=== PATIENT | female | born 1955 | race Caucasian/White ===

== ENCOUNTER 2017-01-14 14:15 | Inpatient (IN) | payer BC, OTHER ==
[2017-01-14 14:33] LABS: Glucose,Whole Blood 61 mg/dL (75-99)
[2017-01-14] MEDS ORDERED: SODIUM CHLORIDE 0.9% 1,000 ML IV STA (14:50)
--- NOTE | 2017-01-14 14:56 | ED ---
General Adult HPI - General Chief complaint: Seizure Stated complaint: Hypotension/Seizure Time Seen by Provider: 01/14/17 14:40 Source: patient, family, EMS, RN notes reviewed Mode of arrival: EMS Limitations: no limitations - History of Present Illness Initial comments: Patient is a pleasant 61-year-old female presenting to the emergency Department with complaints of possible seizure. Patient did see her doctor forming and had high blood pressure. Patient was placed on lisinopril/hydrochlorothiazide and did take 1. Following this patient felt lightheaded and warm and nauseous. Patient went back to the doctor's office and had 2 episodes of unresponsiveness. Each episode lasted 10-15 seconds. Patient's eyes rolled back of her head and there was some shaking. The physician human resources executive assistant there felt that Symptoms were consistent with seizure. No history of previous seizures. Patient is starting to feel somewhat better however does admit to feeling somewhat lightheaded. - Related Data Home Medications Medication Instructions Recorded Confirmed Multivitamins, Thera [Theragran] 1 tab PO DAILY 11/24/14 01/14/17 Ubidecarenone [Co Q-10] 100 mg PO DAILY 11/24/14 01/14/17 Fish Oil/Dha/Epa [Fish Oil 1,200 1 cap PO DAILY 01/14/17 01/14/17 mg Fish Oil] Lisinopril-Hctz 20-25 mg 1 tab PO DAILY 01/14/17 01/14/17 [Zestoretic 20-25] Naproxen [Naprosyn] 500 mg PO Q12HR PRN 01/14/17 01/14/17 Turmeric Root Extract [Turmeric] 500 mg PO DAILY 01/14/17 01/14/17 Allergies Allergy/AdvReac Type Severity Reaction Status Date / Time Penicillins Allergy Anaphylaxis Verified 01/14/17 15:04 Review of Systems ROS Statement: Those systems with pertinent positive or pertinent negative responses have been documented in the HPI. ROS Other: All systems not noted in ROS Statement are negative. Constitutional: Denies: fever Eyes: Denies: eye pain ENT: Denies: ear pain Respiratory: Denies: cough Cardiovascular: Denies: chest pain Endocrine: Denies: fatigue Gastrointestinal: Reports: nausea Genitourinary: Denies: dysuria Musculoskeletal: Denies: joint swelling Skin: Denies: rash Neurological: Denies: headache, weakness, confusion Past Medical History Past Medical History: Eye Disorder Additional Past Medical History / Comment(s): blind right eye, hx. elevated liver enzymes, hemorrhoids History of Any Multi-Drug Resistant Organisms: None Reported Past Surgical History: Section, Ear Surgery Additional Past Surgical History / Comment(s): right mastoid surg., eye muscle surg. Past Anesthesia/Blood Transfusion Reactions: No Reported Reaction Past Psychological History: No Psychological Hx Reported Smoking Status: Former smoker Past Alcohol Use History: Daily Past Drug Use History: None Reported General Exam Limitations: no limitations General appearance: alert, in no apparent distress Head exam: Present: atraumatic Eye exam: Present: other (Medications which patient states is chronic from surgery with multiple muscles being cut.) ENT exam: Present: normal oropharynx Neck exam: Present: normal inspection Respiratory exam: Present: normal lung sounds bilaterally Cardiovascular Exam: Present: regular rate, normal rhythm GI/Abdominal exam: Present: soft. Absent: tenderness Extremities exam: Present: normal inspection, full ROM. Absent: tenderness Neurological exam: Present: alert, oriented X3, CN II-XII intact. Absent: motor sensory deficit Expanded Speech: Present: fluid speech Cranial nerves: EOM's Intact: Normal, Facial Sensation: Normal Sensory exam: Upper Extremity Light Touch: Normal, Lower Extremity Light Touch: Normal Motor strength exam: RUE: 5, LUE: 5, RLE: 5, LLE: 5 Eye Response: (4) open spontaneously Motor Response: (6) obeys commands Verbal Response: (5) oriented Psychiatric exam: Present: normal affect, normal mood Skin exam: Present: normal color Course Vital Signs 01/14/17 01/14/17 01/14/17 14:17 14:26 14:45 Temperature 97.2 F L Pulse Rate 89 87 89 Respiratory 20 20 20 Rate Blood Pressure 95/56 96/56 104/59 O2 Sat by Pulse 97 98 98 Oximetry 01/14/17 01/14/17 15:45 16:41 Temperature Pulse Rate 80 78 Respiratory 18 18 Rate Blood Pressure 104/60 108/58 O2 Sat by Pulse 98 100 Oximetry - Reevaluation(s) Reevaluation #1: 01/14/17 15:08 Patient was earlier provided food for hypoglycemia EKG Findings - EKG Comments: EKG Findings:: Normal sinus rhythm at 82. MT 148. QRS 82. QT 406. QTc 474. Normal axis. Normal QRS. Normal ST-T. Medical Decision Making - Medical Decision Making Patient reevaluated. Patient and family updated. Case discussed in detail with Dr. Wall, who will admit for Dr. huang - Lab Data Result diagrams: 01/14/17 15:13 01/14/17 15:13 Lab Results 01/14/17 01/14/17 01/14/17 Range/Units 14:31 15:13 15:13 WBC (3.8-10.6) k/uL RBC (3.80-5.40) m/uL Hgb (11.4-16.0) gm/dL Hct (34.0-46.0) % MCV (80.0-100.0) fL MCH (25.0-35.0) pg MCHC (31.0-37.0) g/dL RDW (11.5-15.5) % Plt Count (150-450) k/uL PT 13.5 H (9.0-12.0) sec INR 1.4 (<1.1) APTT 24.8 (22.0-30.0) sec Sodium 141 (137-145) mmol/L Potassium 3.8 (3.5-5.1) mmol/L Chloride 106 (98-107) mmol/L Carbon Dioxide 18 L (22-30) mmol/L Anion Gap 17 mmol/L BUN 19 H (7-17) mg/dL Creatinine 1.00 (0.52-1.04) mg/dL Est GFR (MDRD) Af Amer >60 (>60 ml/min/1.73 sqM) Est GFR (MDRD) Non-Af 57 (>60 ml/min/1.73 sqM) Glucose 80 (74-99) mg/dL POC Glucose (mg/dL) 61 L (75-99) mg/dL POC Glu Tax Clerk ID [place], [place]er Calcium 8.8 (8.4-10.2) mg/dL Magnesium 1.4 L (1.6-2.3) mg/dL Total Bilirubin 0.6 (0.2-1.3) mg/dL AST 270 H (14-36) U/L ALT 142 H (9-52) U/L Alkaline Phosphatase 76 (38-126) U/L Total Protein 6.2 L (6.3-8.2) g/dL Albumin 3.9 (3.5-5.0) g/dL TSH 6.060 H (0.465-4.680) mIU/L Free T4 1.30 (0.78-2.19) ng/dL Free T3 pg/mL 4.6 (2.8-5.3) pg/ml 01/14/17 01/14/17 Range/Units 15:13 16:36 WBC 2.2 L (3.8-10.6) k/uL RBC 4.45 (3.80-5.40) m/uL Hgb 15.0 (11.4-16.0) gm/dL Hct 45.7 (34.0-46.0) % MCV 102.6 H (80.0-100.0) fL MCH 33.8 (25.0-35.0) pg MCHC 32.9 (31.0-37.0) g/dL RDW 13.2 (11.5-15.5) % Plt Count 184 (150-450) k/uL PT (9.0-12.0) sec INR (<1.1) APTT (22.0-30.0) sec Sodium (137-145) mmol/L Potassium (3.5-5.1) mmol/L Chloride (98-107) mmol/L Carbon Dioxide (22-30) mmol/L Anion Gap mmol/L BUN (7-17) mg/dL Creatinine (0.52-1.04) mg/dL Est GFR (MDRD) Af Amer (>60 ml/min/1.73 sqM) Est GFR (MDRD) Non-Af (>60 ml/min/1.73 sqM) Glucose (74-99) mg/dL POC Glucose (mg/dL) 91 (75-99) mg/dL POC Glu Tax Clerk ID McDaid, Margarita Calcium (8.4-10.2) mg/dL Magnesium (1.6-2.3) mg/dL Total Bilirubin (0.2-1.3) mg/dL AST (14-36) U/L ALT (9-52) U/L Alkaline Phosphatase (38-126) U/L Total Protein (6.3-8.2) g/dL Albumin (3.5-5.0) g/dL TSH (0.465-4.680) mIU/L Free T4 (0.78-2.19) ng/dL Free T3 pg/mL (2.8-5.3) pg/ml - Radiology Data Radiology results: image reviewed (Computed tomography scan of the brain reveals no acute abnormality.) Disposition Clinical Impression: Unresponsive episode, Hypotensive episode Disposition: ADMITTED IP TO THIS [facility] Condition: Serious Referrals: Brant Holloway DO [Primary Care Provider] - 1-2 days Decision Time: 16:49
--- NOTE | 2017-01-14 15:43 | CT ---
EXAMINATION TYPE: CT brain wo con DATE OF EXAM: 01/14/2017 COMPARISON: NONE INDICATION: SEIZURE TODAY. HYPERTENSION. DLP: 968.7 mGycm, Automated exposure control for dose reduction was used. CONTRAST: None CT of the brain is performed utilizing 3 mm thick sections through the posterior fossa and 3 mm thick sections through the remaining calvarium. Study is performed within 24 hours of arrival to the hosp ital. No abnormal hyperdensity is present to suggest an acute intracranial hemorrhage. No mass lesion is evident. No acute infarcts are evident. Ventricles and sulci are appropriate for the patient age. Paranasal sinuses and mastoid air cells within the [id number] are clear. IMPRESSIONS: 1. Normal CT Brain
[2017-01-14 15:56] LABS: INR 1.4 (<1.1); Partial Thromboplastin Time 24.8 sec (22.0-30.0); Prothrombin Time 13.5 sec (9.0-12.0)
[2017-01-14 16:01] LABS: ALT 142 U/L (9-52); AST 270 U/L (14-36); Alkaline Phosphatase 76 U/L (38-126); Anion Gap 17 mmol/L; Blood Urea Nitrogen 19 mg/dL (7-17); Calcium 8.8 mg/dL (8.4-10.2); Carbon Dioxide 18 mmol/L (22-30); Chloride 106 mmol/L (98-107); Glucose 80 mg/dL (74-99); Magnesium 1.4 mg/dL (1.6-2.3); Non-African American GFR(MDRD) 57 (>60 ml/min/1.73 sqM); Potassium 3.8 mmol/L (3.5-5.1); Sodium 141 mmol/L (137-145); Total Bilirubin 0.6 mg/dL (0.2-1.3); Total Protein 6.2 g/dL (6.3-8.2)
[2017-01-14 16:05] LABS: Basophils % (A) 0 %; CH 33.3; CHCM 32.6; Eosinophils % (A) 1 %; HCT 45.7 % (34.0-46.0); HDW 2.18; Immature Gran Flag Marked; Luc # (Auto) 0.02; Luc % (Auto) 1; Lymphocytes # (A) 0.4 k/uL (1.0-4.8); Lymphocytes % (A) 21 %; MCH 33.8 pg (25.0-35.0); MCHC 32.9 g/dL (31.0-37.0); MCV 102.6 fL (80.0-100.0); Macrocytosis Slight; Mean Platelet Volume 6.8; Monocytes # (A) 0.1 k/uL (0-1.0); Monocytes % (A) 3 %; Neutrophils # (A) 1.6 k/uL (1.3-7.7); Neutrophils % (A) 74 %; RBC 4.45 m/uL (3.80-5.40); RDW 13.2 % (11.5-15.5); WBC 2.2 k/uL (3.8-10.6); WBC (Perox) 2.38
[2017-01-14 16:38] LABS: Glucose,Whole Blood 91 mg/dL (75-99)
[2017-01-14 16:48] LABS: Manual Review Performed
[2017-01-14] MEDS ORDERED: MAGNESIUM SULFATE-D5W PMX 1 GM in DEXTROSE/WATER 1 100ML.BAG IVPB ONE (16:48)
[2017-01-14 16:49] LABS: Toxic Vacuolation Present
[2017-01-14] MEDS: SODIUM CHLORIDE 0.9% 1,000 ML IV SCH (17:14)
[2017-01-14 19:32] VITALS: RESP 16
[2017-01-14 20:06] VITALS: BMI 32.4
[2017-01-14 20:46] LABS: Glucose,Whole Blood 173 mg/dL (75-99)
[2017-01-14] MEDS: NAPROXEN 250 MG TAB PO SCH (21:17)
--- NOTE | 2017-01-14 22:42 | US ---
EXAMINATION TYPE: US CAROTID DUPLEX BILAT DATE OF EXAM: 01/14/2017 COMPARISON: NONE CLINICAL HISTORY: Stenosis. Syncope EXAM MEASUREMENTS: RIGHT: Peak Systolic Velocity (PSV) cm/sec ----- Right CCA: 74.4 ----- Right ICA: 64.3 ----- Right ECA: 91.0 ICA/CCA ratio: 0.9 RIGHT: End Diastole cm/sec ----- Right CCA: 29.0 ----- Right ICA: 23.2 ----- Right ECA: 19.4 LEFT: Peak Systolic Velocity (PSV) cm/sec ----- Left CCA: 78.2 ----- Left ICA: 80.8 ----- Left ECA: 69.1 ICA/CCA ratio: 1.0 LEFT: End Diastole cm/sec ----- Left CCA: 28.5 ----- Left ICA: 31.1 ----- Left ECA: 15.0 VERTEBRALS (direction of flow): Right Vertebral: Antegrade Left Vertebral: Antegrade IMPRESSION: . NO SIGNIFICANT STENOSIS.
[2017-01-15] MEDS: SODIUM CHLORIDE 0.9% 1,000 ML IV SCH ×3 (03:55→20:11)
[2017-01-15 05:40] LABS: Glucose,Whole Blood 99 mg/dL (75-99)
[2017-01-15 06:16] LABS: Basophils % (A) 0 %; CH 33.3; CHCM 33.1; Eosinophils # (A) 0.1 k/uL (0-0.7); Eosinophils % (A) 1 %; HCT 44.5 % (34.0-46.0); HDW 2.17; HGB 14.6 gm/dL (11.4-16.0); Luc # (Auto) 0.08; Luc % (Auto) 1; Lymphocytes # (A) 0.9 k/uL (1.0-4.8); Lymphocytes % (A) 14 %; MCH 33.3 pg (25.0-35.0); MCHC 32.9 g/dL (31.0-37.0); Macrocytosis Slight; Mean Platelet Volume 6.8; Monocytes # (A) 0.4 k/uL (0-1.0); Monocytes % (A) 6 %; Neutrophils # (A) 5.3 k/uL (1.3-7.7); Neutrophils % (A) 78 %; RDW 13.3 % (11.5-15.5); WBC 6.8 k/uL (3.8-10.6); WBC (Perox) 7.19
[2017-01-15 06:26] LABS: Anion Gap 10 mmol/L; Blood Urea Nitrogen 18 mg/dL (7-17); Calcium 8.7 mg/dL (8.4-10.2); Carbon Dioxide 20 mmol/L (22-30); Chloride 108 mmol/L (98-107); Cholesterol 194 mg/dL (<200); Glucose 106 mg/dL (74-99); HDL Cholesterol 59 mg/dL (40-60); Non-African American GFR(MDRD) >60 (>60 ml/min/1.73 sqM); Sodium 138 mmol/L (137-145); Triglycerides 227 mg/dL (<150)
[2017-01-15] MEDS: NAPROXEN 250 MG TAB PO SCH ×2 (09:19→20:11)
--- NOTE | 2017-01-15 11:03 | ECHOF ---
Referral Reason:Thrombus MEASUREMENTS -------- HEIGHT: 157.5 cm WEIGHT: 80.3 kg BP: 133/76 IVSd: 1.3 cm (0.6 - 1.1) LVIDd: 3.6 cm (3.9 - 5.3) LVPWd: 1.4 cm (0.6 - 1.1) IVSs: 1.8 cm LVIDs: 1.7 cm LVPWs: 2.5 cm Ao Diam: 2.5 cm (2.0 - 3.7) AV Cusp: 1.5 cm (1.5 - 2.6) LA Diam: 3.4 cm (2.7 - 3.8) MV EXCURSION: 8.330 mm (> 18.000) MV EF SLOPE: 35 mm/s (70 - 150) EPSS: 0.9 cm MV E Aníbal: 0.86 m/s MV DecT: 107 ms MV A Aníbal: 0.93 m/s MV E/A Ratio: 0.92 RAP: 5.00 mmHg RVSP: 15.84 mmHg FINDINGS -------- Sinus rhythm. This was a technically good study. There is moderate concentric left ventricular hypertrophy. Overall left ventricular systolic function is normal with, an EF between 55 - 60 %. The right ventricle is normal in size. The left atrium is normal in size. The right atrium is normal in size. The aortic valve is trileaflet, and appears structurally normal. No aortic stenosis or regurgitation. There is trace to mild mitral regurgitation. Trace tricuspid regurgitation present. The right ventricular systolic pressure, as measured by Doppler, is 15.84mmHg. Pulmonic valve appears structurally normal. The aortic root size is normal. The pericardium is normal. CONCLUSIONS -------- 1. Sinus rhythm. 2. Trace tricuspid regurgitation present. 3. The right ventricular systolic pressure, as measured by Doppler, is 15.84mmHg. 4. Pulmonic valve appears structurally normal. 5. The aortic root size is normal. 6. The pericardium is normal. 7. This was a technically good study. 8. There is moderate concentric left ventricular hypertrophy. 9. Overall left ventricular systolic function is normal with, an EF between 55 - 60 %. 10. The right ventricle is normal in size. 11. The left atrium is normal in size. 12. The right atrium is normal in size. 13. The aortic valve is trileaflet, and appears structurally normal. No aortic stenosis or regurgitation. 14. There is trace to mild mitral regurgitation. GAS STATION CASHIER: Shanae Yanez RDCS
[2017-01-15 11:25] LABS: Glucose,Whole Blood 93 mg/dL (75-99)
[2017-01-15] MEDS: amLODIPine 5 MG TAB PO SCH (15:40)
--- NOTE | 2017-01-15 16:42 | P.HPIM ---
History of Present Illness H&P Date: 01/15/17 Chief Complaint: Syncope 61-year-old female with history of recent diagnosis of hypertension states her her blood pressures at home have been systolic 150-170 in the recent 1 in to the patient's primary care doctor who has noted her blood pressure being greater than 200 systolic in his office. Patient was started on a lisinopril/ hydrochlorothiazide combination. Patient went home to the medication was immediately noted to be diaphoretic and was not able to be mobile patient went back to primary care physician's office where the blood pressure was deemed to be low sent in to the emergency room patient's blood pressure in the emergency room apparently was around 90 systolic initially. Today patient states to be doing well denies having headaches blurry vision nausea vomiting diarrhea. Patient has lost consciousness twice during this whole episode Denies having any family history of ALLERGIES to CATALINO inhibitor Today in no chest pain difficulty breathing abdominal pain and urinary urgency or frequency or constipation or diarrhea. Review of Systems All systems: negative (Noted in HPI) Past Medical History Past Medical History: Eye Disorder, Osteoarthritis (OA) Additional Past Medical History / Comment(s): blind right eye, hx. elevated liver enzymes, hemorrhoids History of Any Multi-Drug Resistant Organisms: None Reported Past Surgical History: Section, Ear Surgery Additional Past Surgical History / Comment(s): right mastoid surg., eye muscle surgery. enlarged lymph node on neck Past Anesthesia/Blood Transfusion Reactions: No Reported Reaction Past Psychological History: No Psychological Hx Reported Smoking Status: Former smoker Past Alcohol Use History: Daily Additional Past Alcohol Use History / Comment(s): 2 glasses of wine daily Past Drug Use History: None Reported - Past Family History Father Family Medical History: Cancer, Myocardial Infarction ([place]) Additional Family Medical History / Comment(s): bladder cancer Mother Family Medical History: Osteoarthritis (OA) Additional Family Medical History / Comment(s): arachnoid cyst Medications and Allergies Home Medications Medication Instructions Recorded Confirmed Type Multivitamins, Thera [Theragran] 1 tab PO DAILY 11/24/14 01/14/17 History Ubidecarenone [Co Q-10] 100 mg PO DAILY 11/24/14 01/14/17 History Fish Oil/Dha/Epa [Fish Oil 1,200 1 cap PO DAILY 01/14/17 01/14/17 History mg Fish Oil] Lisinopril-Hctz 20-25 mg 1 tab PO DAILY 01/14/17 01/14/17 History [Zestoretic 20-25] Naproxen [Naprosyn] 500 mg PO Q12HR PRN 01/14/17 01/14/17 History Turmeric Root Extract [Turmeric] 500 mg PO DAILY 01/14/17 01/14/17 History Allergies Allergy/AdvReac Type Severity Reaction Status Date / Time bee venom protein (honey bee) Allergy Swelling Verified 01/14/17 19:59 Penicillins Allergy Anaphylaxis Verified 01/14/17 15:04 Physical Exam Vitals: Vital Signs Temp Pulse Pulse Resp BP BP Pulse Ox 01/15/17 12:00 97.6 F 77 16 179/100 96 01/15/17 09:20 98.2 F 88 16 132/83 97 01/15/17 04:00 99 F 90 16 133/76 93 L 01/15/17 00:00 83 16 138/70 93 L 01/14/17 21:14 91 01/14/17 19:15 97.5 F L 91 16 114/72 94 L 01/14/17 18:50 98.0 F 99 20 126/82 99 01/14/17 17:35 85 18 116/62 97 01/14/17 16:41 78 18 108/58 100 Intake and Output 01/15/17 01/15/17 01/15/17 06:59 14:59 22:59 Intake Total 800 480 Balance 800 480 Intake: IV 800 Sodium Chloride 0.9% 1, 800 000 ml @ 100 mls/hr IV . Q10H [facility] Rx#:[id number] Oral 480 Other: # Voids 1 Weight 80.6 kg Physical exam Gen. appearance oriented 3 in no distress Neck is supple no JVD Lungs good air entry clear to auscultation no rhonchi or wheezing Heart S1-S2 heard regular rate and rhythm no murmurs appreciated Abdomen is soft nontender no organomegaly bowel sounds are intact Neurologically cranial nerves II-12 grossly intact no focal motor or sensory deficits noted Skin no abnormalities appreciated Results CBC & Chem 7: 01/15/17 05:23 01/15/17 05:23 Labs: Abnormal Lab Results - Last 24 Hours (Table) 01/14/17 01/14/17 01/14/17 Range/Units 15:13 15:13 20:44 WBC 2.2 L (3.8-10.6) k/uL MCV 102.6 H (80.0-100.0) fL Lymphocytes # 0.4 L (1.0-4.8) k/uL Chloride (98-107) mmol/L Carbon Dioxide (22-30) mmol/L BUN (7-17) mg/dL Glucose (74-99) mg/dL POC Glucose (mg/dL) 173 H (75-99) mg/dL Triglycerides (<150) mg/dL TSH 6.060 H (0.465-4.680) mIU/L 01/15/17 01/15/17 Range/Units 05:23 05:23 WBC (3.8-10.6) k/uL MCV 101.0 H (80.0-100.0) fL Lymphocytes # 0.9 L (1.0-4.8) k/uL Chloride 108 H (98-107) mmol/L Carbon Dioxide 20 L (22-30) mmol/L BUN 18 H (7-17) mg/dL Glucose 106 H (74-99) mg/dL POC Glucose (mg/dL) (75-99) mg/dL Triglycerides 227 H (<150) mg/dL TSH (0.465-4.680) mIU/L Thrombosis Risk Factor Assmnt - Choose All That Apply Any of the Below Risk Factors Present?: Yes Each Factor Represents 1 point: Age 41-60 years, Obesity (BMI >25) Other Risk Factors: No Thrombosis Risk Factor Assessment Total Risk Factor Score: 2 Thrombosis Risk Factor Assessment Level: Low Risk Assessment and Plan Plan: #1 syncope likely secondary to significant relative episodes of hypotension this is unusual as there is no other signs of patient having a abnormal reaction to lisinopril #2 currently accelerated hypertension without any symptoms #3 previous history of tobacco use Plan We'll start the patient on 5 mg of amlodipine at this time Patient's blood pressures are 170/90 target blood pressure be around 140-150 systolic Patient is to be some questions about seizure like activity which could be attributed to the above relative hypotension \ will have neurology evaluate the patient as well
[2017-01-16 06:26] LABS: Basophils % (A) 1 %; CH 33.5; CHCM 33.3; Eosinophils # (A) 0.2 k/uL (0-0.7); Eosinophils % (A) 2 %; HCT 42.1 % (34.0-46.0); HDW 2.21; HGB 13.9 gm/dL (11.4-16.0); Luc # (Auto) 0.21; Luc % (Auto) 3; Lymphocytes # (A) 2.2 k/uL (1.0-4.8); Lymphocytes % (A) 30 %; MCH 33.5 pg (25.0-35.0); MCHC 33.1 g/dL (31.0-37.0); MCV 101.1 fL (80.0-100.0); Macrocytosis Slight; Mean Platelet Volume 6.7; Monocytes # (A) 0.5 k/uL (0-1.0); Monocytes % (A) 7 %; Neutrophils # (A) 4.2 k/uL (1.3-7.7); Neutrophils % (A) 58 %; RBC 4.16 m/uL (3.80-5.40); RDW 13.4 % (11.5-15.5); WBC 7.2 k/uL (3.8-10.6); WBC (Perox) 7.58
[2017-01-16 06:51] LABS: Anion Gap 9 mmol/L; Blood Urea Nitrogen 12 mg/dL (7-17); Calcium 9.4 mg/dL (8.4-10.2); Carbon Dioxide 26 mmol/L (22-30); Chloride 107 mmol/L (98-107); Glucose 102 mg/dL (74-99); Non-African American GFR(MDRD) >60 (>60 ml/min/1.73 sqM); Potassium 4.9 mmol/L (3.5-5.1); Sodium 142 mmol/L (137-145)
--- NOTE | 2017-01-16 07:04 | CONS ---
DATE OF CONSULTATION: 01/15/2017 CHIEF COMPLAINT: Syncopal spells. HISTORY OF PRESENT ILLNESS: The patient is a pleasant 61-year-old, female who is being evaluated by the neurology service per the request of Dr. Wall for syncopal spells. The patient was recently diagnosed with hypertension and was started on lisinopril/hydrochlorothiazide by her primary care physician. Soon after taking the medication, she felt very dizzy and she went back to her primary care physician's office where she had 2 witnessed episodes of loss of consciousness. On one of the episodes, it was described that the patient's eyes rolled back and some jerking was seen. The patient does recall the events and recalls that she was feeling very dizzy and nauseous just before passing out. When she regained consciousness, she did not have any confusion or drowsiness and she knew exactly where she was at according to her. She was brought into [facility] Emergency Room where her blood pressure was found to be quite low at 95/56. She was started on IV fluids and admitted for further workup and management. Her lisinopril/hydrochlorothiazide was discontinued. A CT scan of the brain was done, which was normal and her carotid Doppler showed no hemodynamically significant stenosis. Her comprehensive metabolic profile showed elevated AST at 270 and ALT at 142. She does drink 2 glasses of wine almost on a daily basis. PAST MEDICAL HISTORY: Hypertension, history of ear surgery and . SOCIAL HISTORY: The patient is a former smoker. She does drink daily. She denies any drug use. FAMILY HISTORY: Noncontributory. HOME MEDICATIONS: Reviewed in the chart. ALLERGIES: PENICILLIN. REVIEW OF SYSTEMS: As mentioned above and otherwise negative. PHYSICAL EXAM: Vital signs show a temperature of 97.6, pulse 91, respirations 16, blood pressure 158/86. GENERAL APPEARANCE: The patient is a well-developed female who appears to be in no acute distress. HEENT: Normocephalic, atraumatic. ( ) is noticed in the right eye. The patient does have right eye blindness. No facial asymmetry is seen. Neck is supple with no masses felt. CARDIOVASCULAR: Regular rate and rhythm. ABDOMEN: Nontender, nondistended. Extremities showed no edema or clubbing. NEUROLOGICAL EXAM: The patient is alert, aware, and oriented x3. Speech and language are normal. Strength is full in all 4 extremities. Sensory exam was normal to light touch in all 4 extremities. Cranial nerve testing was normal except for right eye visual deficit and ( ) seen on the right eye. IMPRESSION: 1. Syncopal spells. 2. Hypotension. 3. Hepatic insufficiency. RECOMMENDATIONS: The patient's recurrent syncopal episodes are due to her hypotensive episodes. The patient had taken her first dose of lisinopril/hydrochlorothiazide, which caused her hypotensive episode. Her blood pressure is better at this time. She has been switched to Norvasc. An EEG has been ordered. As for her hepatic insufficiency, I do recommend further workup and management as her INR is also slightly elevated. The patient was counseled on alcohol cessation. Continue the rest of your current workup and management. I will continue to follow with you. Further recommendations to follow. Thank you for allowing me to participate in the care of your patient. If you have any questions, please feel free to contact me.
[2017-01-16] MEDS: NAPROXEN 250 MG TAB PO SCH (08:59)
[2017-01-16] MEDS: amLODIPine 5 MG TAB PO SCH (08:59)
[2017-01-16 09:05] VITALS: PULSE 81; TEMP 97.6
--- NOTE | 2017-01-16 13:45 | P.DS ---
Providers Date of admission: 01/14/17 16:49 Attending physician: Sue Wall Consults: 01/14/17 16:50 Consult Physician Urgent Consulting Provider: Josefa Be Consult Reason/Comments: Unresponsive episode Do you want consulting provider notified?: Yes Primary care physician: Brant Holloway [place] [employer] [facility] Course: 61-year-old female with history of recent diagnosis of hypertension states her her blood pressures at home have been systolic 150-170 in the recent 1 in to the patient's primary care doctor who has noted her blood pressure being greater than 200 systolic in his office. Patient was started on a lisinopril/ hydrochlorothiazide combination. Patient went home to the medication was immediately noted to be diaphoretic and was not able to be mobile patient went back to primary care physician's office where the blood pressure was deemed to be low sent in to the emergency room patient's blood pressure in the emergency room apparently was around 90 systolic initially. Today patient states to be doing well denies having headaches blurry vision nausea vomiting diarrhea. Patient has lost consciousness twice during this whole episode Denies having any family history of ALLERGIES to CATALINO inhibitor Today in no chest pain difficulty breathing abdominal pain and urinary urgency or frequency or constipation or diarrhea. Physical exam Gen. appearance oriented 3 in no distress Neck is supple no JVD Lungs good air entry clear to auscultation no rhonchi or wheezing Heart S1-S2 heard regular rate and rhythm no murmurs appreciated Abdomen is soft nontender no organomegaly bowel sounds are intact Neurologically cranial nerves II-12 grossly intact no focal motor or sensory deficits noted Skin no abnormalities appreciated Plan: #1 syncope this is likely vasovagal. There is some concern over having a reaction to lisinopril that would be unusual hence change in medication or to amlodipine 5 mg and will discharge the patient home to follow-up with Dr. Holloway. Did discuss the proper method of taking blood pressure recording it in order to follow-up with Dr. Holloway patient verbalized understanding #2 accelerated hypertension present on admission #3 previous history of tobacco use Patient Condition at Discharge: Serious Plan - Discharge Summary New Discharge Prescriptions: New amLODIPine [Norvasc] 5 mg PO DAILY #30 tab Continue Multivitamins, Thera [Multivitamin (formulary)] 1 tab PO DAILY Ubidecarenone [Co Q-10] 100 mg PO DAILY Naproxen [Naprosyn] 500 mg PO Q12HR PRN PRN Reason: Pain Turmeric Root Extract [Turmeric] 500 mg PO DAILY Fish Oil/Dha/Epa [Fish Oil 1,200 mg Fish Oil] 1 cap PO DAILY Discontinued Lisinopril-Hctz 20-25 mg [Zestoretic 20-25] 1 tab PO DAILY Discharge Medication List Multivitamins, Thera [Multivitamin (formulary)] 1 tab PO DAILY 11/24/14 [History ] Ubidecarenone [Co Q-10] 100 mg PO DAILY 11/24/14 [History] Fish Oil/Dha/Epa [Fish Oil 1,200 mg Fish Oil] 1 cap PO DAILY 01/14/17 [History] Naproxen [Naprosyn] 500 mg PO Q12HR PRN 01/14/17 [History] Turmeric Root Extract [Turmeric] 500 mg PO DAILY 01/14/17 [History] amLODIPine [Norvasc] 5 mg PO DAILY #30 tab 01/16/17 [Rx] Follow up Appointment(s)/Referral(s): Brant oHlloway DO [Primary Care Provider] - 01/18/17 10:00 am Patient Instructions/Handouts: Hypertension (DC) Discharge Disposition: HOME SELF-CARE
[2017-01-16 14:23] VITALS: BP 157/87
--- NOTE | 2017-01-16 18:36 | PN ---
DATE OF SERVICE: 01/16/2017 CHIEF COMPLAINT: Syncopal spells. HISTORY OF PRESENT ILLNESS: This is a pleasant 71-year-old female continuing to be evaluated by the neurology service for syncopal spells. She was recently diagnosed with hypertension and started on lisinopril and hydrochlorothiazide. Soon after taking her medication she became dizzy and had 2 episodes of syncope. There was no seizure activity seen. There was no postictal confusion. In the emergency room, her blood pressure was found to be 95/56. She was started on IV fluids and admitted. CT of the brain showed no acute intracranial abnormalities. Her carotid Doppler showed no hemodynamically significant stenosis. Her EEG was normal. Since admission, the medication has been stopped and she has no further episodes. At the time of my exam she is sitting up at her bedside comfortably in no acute distress. PAST MEDICAL HISTORY: Hypertension and . Home medications are reviewed in the chart. PHYSICAL EXAM: Vital signs show temperature 97.6, pulse 91, respirations 16, blood pressure was pulse 88/86. GENERAL APPEARANCE: Well-developed, female in no acute distress. HEENT: Normocephalic, atraumatic. 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 CARDIOVASCULAR: Rate and rhythm are regular. ABDOMEN: Nontender, nondistended. NEUROLOGICAL: She is alert, awake and oriented x3. Speech and language are normal. Strength is full in all 4 extremities. No tremors or seizure-like activities are seen. IMPRESSION: 1. Syncopal spell, resolved. 2. Hypotension. 3. Hepatic insufficiency. RECOMMENDATIONS: We do not feel that her symptoms are due to any neurological process. These are likely hypotensive episodes, which have resolved with this cessation of her blood pressure medications. She was started on a new blood pressure medication and she will follow up with her primary care physician. I performed a history and physical examination of this patient and discussed the same with the dictator. I agree with the dictator's note. Any additional findings/opinions, etc. will be noted.
--- NOTE | 2017-01-17 05:44 | EEG ---
DATE OF SERVICE: 01/16/2017 REASON FOR TESTING: Syncope. AGE: 61Y DESCRIPTION OF THE PROCEDURE: This EEG was performed using a 21-channel digital electroencephalograph, following the international 10 to 20 system. DESCRIPTION OF THE RECORDING: From the beginning of the tracing, and with the patient's eyes closed, the background rhythm was mostly consisting of 8 to 9 Hz alpha frequency in the posterior occipital region. No obvious asymmetry is seen. Photic stimulation was performed with a good driving response seen. No pathological waves were elicited. Hyperventilation was not performed. The patient remains awake throughout the tracing. No epileptiform discharges were seen. Her EKG lead showed a regular rate and rhythm. INTERPRETATION: This awake EEG can be considered within normal limits. There was no asymmetry seen. No epileptiform discharges were noticed. The absence of epileptiform discharges does not rule out the diagnosis of epilepsy, therefore, clinical correlation is recommended.
== END 2017-01-16 14:33 | disposition home or self-care (01) | DRG 312 ==
LOC: EC 14:15 → 6SEL 16:49
PROVIDERS: ADMIT Internal Medicine; ATTEND Internal Medicine
DX: I95.2 Hypotension due to drugs (principal); K72.90 Hepatic failure, unspecified without coma; I10 Essential (primary) hypertension; R55 Syncope and collapse; H54.41 Blindness, right eye, normal vision left eye; K64.9 Unspecified hemorrhoids; M19.90 Unspecified osteoarthritis, unspecified site; T46.4X5A Adverse effect of angiotensin-converting-enzyme inhibitors, initial encounter; Z87.891 Personal history of nicotine dependence; Z88.0 Allergy status to penicillin; Z82.49 Family history of ischemic heart disease and other diseases of the circulatory system; Y92.009 Unspecified place in unspecified non-institutional (private) residence as the place of occurrence of the external cause
CPT/HCPCS: 36415; 70450; 80048; 80053; 80061; 83735; 84439; 84443; 84481; 84484; 85025; 85610; 85730; 93005; 93306; 93880; 95816; 96361; 96365; 99285

== ENCOUNTER 2017-02-13 09:26 | Inpatient (IN) | payer OTHER ==
[2017-02-13] MEDS ORDERED: RACEPINEPHRINE 2.25% NEB 0.5 ML NEBU INHALATION STA (09:34)
[2017-02-13] MEDS ORDERED: SODIUM CHLORIDE 0.9% 1,000 ML IV STA (09:35)
[2017-02-13] MEDS ORDERED: ONDANSETRON 4 MG/2 ML VIAL IVP STA (09:35)
[2017-02-13] MEDS ORDERED: methylPREDNISolone SOD SUCCI 125 MG/2 ML VIAL IV STA (09:35)
[2017-02-13] MEDS ORDERED: FAMOTIDINE 20 MG/2 ML VIAL IV STA (09:35)
--- NOTE | 2017-02-13 09:53 | ED ---
Allergic Reaction HPI - General Chief complaint: Allergic Reaction Stated complaint: Allergic Reaction Time Seen by Provider: 02/13/17 09:26 Source: patient, EMS, RN notes reviewed, old records reviewed Mode of arrival: EMS Limitations: no limitations - History of Present Illness Initial Comments: This is a 61-year-old female with a history of hypertension who apparently recently had a reaction to lisinopril and was placed on hydrochlorothiazide for her blood pressure which she started developing ALLERGIC reaction. She started developing difficulty breathing EMS was called she was found to have a blood pressure 70/30 she was hypoxemic. She was given Benadryl IV. She was found be tachycardic with her heart rate near the 150s. After consultation with me via telephone patient was given epinephrine. Upon arrival she was awake but somewhat lethargic but easily arousable and conversant. She has some nausea she states she did not feel well. She states her breathing has improved. No chest pain no cough or phlegm production. MD Complaint: allergic reaction - Related Data Home Medications Medication Instructions Recorded Confirmed Multivitamins, Thera [Multivitamin 1 tab PO DAILY 11/24/14 02/13/17 (formulary)] Ubidecarenone [Co Q-10] 100 mg PO DAILY 11/24/14 02/13/17 Fish Oil/Dha/Epa [Fish Oil 1,200 1 cap PO DAILY 01/14/17 02/13/17 mg Fish Oil] Naproxen [Naprosyn] 500 mg PO Q12HR PRN 01/14/17 02/13/17 Turmeric Root Extract [Turmeric] 500 mg PO DAILY 01/14/17 02/13/17 Ergocalciferol [Vitamin D2] 50,000 unit PO Q14D 02/13/17 02/13/17 Hydrochlorothiazide [Hydrodiuril] 25 mg PO DIRECTED 02/13/17 02/13/17 amLODIPine [Norvasc] 10 mg PO DAILY 02/13/17 02/13/17 Allergies Allergy/AdvReac Type Severity Reaction Status Date / Time bee venom protein (honey bee) Allergy Swelling Verified 02/13/17 10:11 hydrochlorothiazide Allergy Anaphylaxis Verified 02/13/17 10:11 lisinopril Allergy Anaphylaxis Verified 02/13/17 10:11 Penicillins Allergy Anaphylaxis Verified 02/13/17 10:11 Review of Systems ROS Statement: Those systems with pertinent positive or pertinent negative responses have been documented in the HPI. ROS Other: All systems not noted in ROS Statement are negative. Past Medical History Past Medical History: Eye Disorder, Osteoarthritis (OA) Additional Past Medical History / Comment(s): blind right eye, hx. elevated liver enzymes, hemorrhoids History of Any Multi-Drug Resistant Organisms: None Reported Past Surgical History: Section, Ear Surgery Additional Past Surgical History / Comment(s): right mastoid surg., eye muscle surgery. enlarged lymph node on neck Past Anesthesia/Blood Transfusion Reactions: No Reported Reaction Past Psychological History: No Psychological Hx Reported Smoking Status: Former smoker Past Alcohol Use History: Daily Past Drug Use History: None Reported - Past Family History Father Family Medical History: Cancer, Myocardial Infarction ([place]) Additional Family Medical History / Comment(s): bladder cancer Mother Family Medical History: Osteoarthritis ([place]) Additional Family Medical History / Comment(s): arachnoid cyst General Exam - General Exam Comments Initial Comments: This is a well-developed well-nourished awake alert anxious appearing female Limitations: no limitations General appearance: alert, anxious, in distress Head exam: Present: atraumatic, normocephalic, normal inspection Eye exam: Present: normal appearance, PERRL, EOMI. Absent: scleral icterus, conjunctival injection, periorbital swelling ENT exam: Present: other (Lab was here pharyngeal hyperemia no edema seen) Neck exam: Present: normal inspection, full ROM, other (Some stridor is noted.) Respiratory exam: Present: decreased breath sounds Cardiovascular Exam: Present: normal rhythm, tachycardia, normal heart sounds. Absent: systolic murmur, diastolic murmur, rubs, gallop, clicks GI/Abdominal exam: Present: soft, normal bowel sounds. Absent: distended, tenderness, guarding, rebound, rigid Extremities exam: Present: normal inspection, full ROM, normal capillary refill. Absent: tenderness, pedal edema, joint swelling, calf tenderness Back exam: Present: normal inspection Neurological exam: Present: alert, oriented X3, CN II-XII intact Psychiatric exam: Present: normal affect, anxious Skin exam: Present: dry, intact, other (Extremities are cool to touch capillary refill is maintained at less than 2 seconds however pulses were equal bilaterally.). Absent: rash Course Vital Signs 0702/13/17 02/13/17 09:34 09:40 09:53 Temperature 97.3 F L Pulse Rate 119 H 111 H 116 H Respiratory 30 H Rate Blood Pressure 106/61 O2 Sat by Pulse 92 L Oximetry 02/13/17 02/13/17 02/13/17 10:00 11:00 11:45 Temperature Pulse Rate 112 H 107 H 108 H Respiratory 25 H 25 H 18 Rate Blood Pressure 114/66 118/79 125/84 O2 Sat by Pulse 94 L 99 98 Oximetry 02/13/17 02/13/17 02/13/17 12:23 12:29 13:54 Temperature Pulse Rate 112 H 104 H Respiratory 18 18 Rate Blood Pressure 110/77 113/65 O2 Sat by Pulse 93 L 93 L 96 Oximetry - Reevaluation(s) Reevaluation #1: 02/13/17 09:58 I did discuss the initial presentation with the patient's who is now present she took the medication at about 7 AM this morning and then by 8 AM she was not feeling very well. She was then taken to the doctor's office which was right down the street. She does have some evidence of cyanosis at this time. states that this is not her normal color. Lung sounds are clear at this time the stridorous sounds have improved. Pulse oximetry is currently 93% . This is on a mask. 02/13/17 10:03 Further information patient is a former smoker she did quit 30 years ago she smoked for about 5 years. Reevaluation #2: 02/13/17 13:57 I did reevaluate patient several occasions. She did receive improvement the initial treatment. Medical Decision Making - Lab Data Result diagrams: 02/13/17 09:55 02/13/17 09:55 Lab Results 02/13/17 02/13/17 02/13/17 Range/Units 09:55 09:55 09:55 WBC 2.2 L (3.8-10.6) k/uL RBC 5.57 H (3.80-5.40) m/uL Hgb 18.5 H D (11.4-16.0) gm/dL Hct 55.5 H (34.0-46.0) % MCV 99.6 (80.0-100.0) fL MCH 33.1 (25.0-35.0) pg MCHC 33.3 (31.0-37.0) g/dL RDW 12.8 (11.5-15.5) % Plt Count 195 (150-450) k/uL Neutrophils % 56 % Lymphocytes % 35 % Monocytes % 7 % Eosinophils % 0 % Basophils % 1 % Neutrophils # 1.2 L (1.3-7.7) k/uL Lymphocytes # 0.8 L (1.0-4.8) k/uL Monocytes # 0.1 (0-1.0) k/uL Eosinophils # 0.0 (0-0.7) k/uL Basophils # 0.0 (0-0.2) k/uL D-Dimer (<0.60) mg/L FEU Sodium 141 (137-145) mmol/L Potassium 3.7 (3.5-5.1) mmol/L Chloride 109 H (98-107) mmol/L Carbon Dioxide 18 L (22-30) mmol/L Anion Gap 14 mmol/L BUN 12 (7-17) mg/dL Creatinine 0.70 (0.52-1.04) mg/dL Est GFR (MDRD) Af Amer >60 (>60 ml/min/1.73 sqM) Est GFR (MDRD) Non-Af >60 (>60 ml/min/1.73 sqM) Glucose 124 H (74-99) mg/dL Calcium 8.4 (8.4-10.2) mg/dL Magnesium 1.7 (1.6-2.3) mg/dL Total Bilirubin 0.5 (0.2-1.3) mg/dL AST 47 H (14-36) U/L ALT 35 (9-52) U/L Alkaline Phosphatase 115 (38-126) U/L Total Creatine Kinase 59 (30-135) U/L CK-MB (CK-2) 1.0 (0.0-2.4) ng/mL CK-MB (CK-2) Rel Index 1.7 Troponin I 0.046 H* (0.000-0.034) ng/mL Total Protein 6.3 (6.3-8.2) g/dL Albumin 3.6 (3.5-5.0) g/dL TSH 3.540 (0.465-4.680) mIU/L 07/12/17 Range/Units 10:12 WBC (3.8-10.6) k/uL RBC (3.80-5.40) m/uL Hgb (11.4-16.0) gm/dL Hct (34.0-46.0) % MCV (80.0-100.0) fL MCH (25.0-35.0) pg MCHC (31.0-37.0) g/dL RDW (11.5-15.5) % Plt Count (150-450) k/uL Neutrophils % % Lymphocytes % % Monocytes % % Eosinophils % % Basophils % % Neutrophils # (1.3-7.7) k/uL Lymphocytes # (1.0-4.8) k/uL Monocytes # (0-1.0) k/uL Eosinophils # (0-0.7) k/uL Basophils # (0-0.2) k/uL D-Dimer >34.07 H (<0.60) mg/L FEU Sodium (137-145) mmol/L Potassium (3.5-5.1) mmol/L Chloride (98-107) mmol/L Carbon Dioxide (22-30) mmol/L Anion Gap mmol/L BUN (7-17) mg/dL Creatinine (0.52-1.04) mg/dL Est GFR (MDRD) Af Amer (>60 ml/min/1.73 sqM) Est GFR (MDRD) Non-Af (>60 ml/min/1.73 sqM) Glucose (74-99) mg/dL Calcium (8.4-10.2) mg/dL Magnesium (1.6-2.3) mg/dL Total Bilirubin (0.2-1.3) mg/dL AST (14-36) U/L ALT (9-52) U/L Alkaline Phosphatase (38-126) U/L Total Creatine Kinase (30-135) U/L CK-MB (CK-2) (0.0-2.4) ng/mL CK-MB (CK-2) Rel Index Troponin I (0.000-0.034) ng/mL Total Protein (6.3-8.2) g/dL Albumin (3.5-5.0) g/dL TSH (0.465-4.680) mIU/L - EKG Data -: EKG Interpreted by Mt EKG shows normal: sinus rhythm Rate: tachycardia (Sinus tachycardia with a rate of 121 NV interval 142 QRS 76 QT/QTC of 332/471 right reyez axis nonspecific T-wave configuration this is compared with an EKG submitted from 01/14/17) - Radiology Data Radiology results: report reviewed (I did review the imaging and reports no evidence of PE no definite acute findings increased markings in the lungs were noted.), image reviewed Critical Care Time Critical Care Time: Yes Critical Care Time: 39 minutes of critical care time which includes initial monitoring of the EMS run and discussed with paramedics history physical labs x-rays reevaluation is of the patient. Discussed with the patient's family and several occasions regarding findings discussed with the admitting physician and admission orders and documentation of the above. Review of old charting. Disposition Clinical Impression: Allergic reaction, Anaphylaxis, Elevated d-dimer, Elevated troponin Disposition: ADMITTED IP TO THIS [facility] Condition: Stable Referrals: Brant Holloway DO [Primary Care Provider] - 1-2 days
[2017-02-13] MEDS ORDERED: MAGNESIUM SULFATE-D5W PMX 1 GM in DEXTROSE/WATER 1 100ML.BAG IVPB ONE (09:58)
[2017-02-13 10:15] LABS: ALT 35 U/L (9-52); AST 47 U/L (14-36); Alkaline Phosphatase 115 U/L (38-126); Anion Gap 14 mmol/L; Blood Urea Nitrogen 12 mg/dL (7-17); Calcium 8.4 mg/dL (8.4-10.2); Carbon Dioxide 18 mmol/L (22-30); Chloride 109 mmol/L (98-107); Glucose 124 mg/dL (74-99); Magnesium 1.7 mg/dL (1.6-2.3); Non-African American GFR(MDRD) >60 (>60 ml/min/1.73 sqM); Potassium 3.7 mmol/L (3.5-5.1); Sodium 141 mmol/L (137-145); Total Bilirubin 0.5 mg/dL (0.2-1.3); Total Protein 6.3 g/dL (6.3-8.2)
[2017-02-13 10:21] LABS: Basophils % (A) 1 %; CH 32.6; CHCM 32.9; Eosinophils % (A) 0 %; HCT 55.5 % (34.0-46.0); Luc # (Auto) 0.03; Luc % (Auto) 1; Lymphocytes # (A) 0.8 k/uL (1.0-4.8); Lymphocytes % (A) 35 %; MCH 33.1 pg (25.0-35.0); MCHC 33.3 g/dL (31.0-37.0); MCV 99.6 fL (80.0-100.0); Mean Platelet Volume 6.9; Monocytes # (A) 0.1 k/uL (0-1.0); Monocytes % (A) 7 %; Neutrophils # (A) 1.2 k/uL (1.3-7.7); Neutrophils % (A) 56 %; RBC 5.57 m/uL (3.80-5.40); RDW 12.8 % (11.5-15.5); WBC 2.2 k/uL (3.8-10.6)
--- NOTE | 2017-02-13 10:21 | XR ---
EXAMINATION TYPE: XR chest 1V portable DATE OF EXAM: 02/13/2017 COMPARISON: NONE HISTORY: Shortness of breath TECHNIQUE: Single frontal view of the chest is obtained. FINDINGS: Diffuse interstitial pattern noted. No pleural effusion or pneumothorax. Heart size normal . No consolidative process. IMPRESSION: 1. Diffuse interstitial pattern could be seen with interstitial lung disease or pneumonitis. Venous c ongestion or chronic pulmonary fibrosis also the differential diagnosis. No prior exam is available to assess chronicity.
[2017-02-13 10:24] LABS: HGB 18.5 gm/dL (11.4-16.0)
[2017-02-13 10:37] LABS: Troponin I 0.046 ng/mL (0.000-0.034)
[2017-02-13] MEDS ORDERED: RX INFO: IV CONTRAST WAS GIVEN 1 EACH MISC MISCELLANE PRN (11:09)
--- NOTE | 2017-02-13 11:57 | CT ---
EXAMINATION TYPE: CT angio chest DATE OF EXAM: 02/13/2017 COMPARISON: Chest x-ray same date HISTORY: SOB, elevated d dimer CT DLP: 554 mGycm Automated exposure control for dose reduction was used. CONTRAST: CTA scan of the thorax is performed with IV Contrast, patient injected with 100 mL of Omnipaque 350, pulmonary embolism protocol. MIP images are created and reviewed. 3D reconstructed images are creat ed on an independent workstation and reviewed. FINDINGS: LUNGS: As noted on patient's chest x-ray there is prominent interstitium. Groundglass opacity is pres ent bilaterally. Bronchial wall thickening is noted. There are small bilateral pleural effusions. Bas ilar atelectatic changes are present. AORTA: No additional significant abnormality is seen. MEDIASTINUM: There is satisfactory enhancement of the pulmonary artery and its branches, there is no CT evidence for pulmonary embolism. There are no greater than 1 cm hilar or mediastinal lymph nodes. No pericardial effusion is seen. OTHER: There are coronary artery calcifications. IMPRESSION: BILATERAL PLEURAL EFFUSIONS AND ASSOCIATED ATELECTASIS. CORONARY ARTERY DISEASE. CONSIDER CONGESTIVE HEART FAILURE, HYPERSENSITIVITY PNEUMONITIS, PULMONARY EDEMA. NO EVIDENT PULMONARY EMBOLISM.
[2017-02-13] MEDS ORDERED: NITROGLYCERIN SL TABS 0.4 MG TAB SUBLINGUAL PRN (13:59)
[2017-02-13] MEDS ORDERED: HEPARIN SODIUM,PORCINE 5,000 UNIT/ML 1 ML VIAL IV ONE (13:59)
[2017-02-13] MEDS ORDERED: HEPARIN SODIUM,PORCINE/D5W PMX 25,000 UNIT in DEXTROSE/WATER 1 500ML.BAG IV SCH (14:00)
[2017-02-13 15:56] LABS: Creatine Kinase MB 1.3 ng/mL (0.0-2.4)
[2017-02-13] MEDS ORDERED: IPRATROPIUM-ALBUTEROL 3 ML NEB INHALATION SCH (16:00)
[2017-02-13 16:01] LABS: Troponin I 0.102 ng/mL (0.000-0.034)
--- NOTE | 2017-02-13 16:17 | P.HPIM ---
History of Present Illness H&P Date: 02/13/17 Chief Complaint: Chest pain This is a 61-year-old female with history of hypertension comes in to the hospital after having an acute reaction to a new medication that was started within the last 24 hours. Patient was admitted to a service a month ago for similar episode where patient had a syncope and some concern for an ALLERGIC reaction. Patient at that time was on hydrochlorothiazide/lisinopril. The reaction was attribute it to lisinopril and hence was titrated off it and was started on amlodipine 5 mg Patient's primary care doctor Dr. Holloway has increased amlodipine to 10 mg however due to peripheral vascular edema a dose of hydrochlorothiazide was attempted with the patient patient took her first dose was noted to have significant amount of dyspnea and swelling in her tongue eyes. Patient did not have any episodes of chest pain or graft patient also noted to have significant episodes of tachyphylaxis with sinus tachycardia that was noted on the monitor Patient was seen in the emergency room was noted to have sinus tachycardia. Patient was also noted to have a d-dimer elevation is CT angiogram was done did not reveal a pulmonary embolism however patient was noted to have coronary calcifications Patient at the time of my evaluation states to be feeling better denies having headaches blurry vision chest pain difficulty breathing nausea vomiting diarrhea Patient ever denies having any ALLERGIES to sulfa exposure Review of Systems All systems: negative (Noted in HPI) Past Medical History Past Medical History: Eye Disorder, Hypertension, Osteoarthritis (OA) Additional Past Medical History / Comment(s): PT recently admitted to [facility] on 07/21 with allergic reaction to zestoretic. 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 History of Any Multi-Drug Resistant Organisms: None Reported Past Surgical History: Section, Tubal Ligation Additional Past Surgical History / Comment(s): right mastoid surg., eye muscle surgery, colonoscopy with benign polypectomy, D&C. Past Anesthesia/Blood Transfusion Reactions: Postoperative Nausea & Vomiting ( PONV) Smoking Status: Former smoker - Past Family History Father Family Medical History: Cancer, Myocardial Infarction ([place]) Additional Family Medical History / Comment(s): Father of bladder cancer. He had a [place] in his 70's. Mother Family Medical History: Osteoarthritis (OA) Additional Family Medical History / Comment(s): arachnoid cyst Medications and Allergies Home Medications Medication Instructions Recorded Confirmed Type Multivitamins, Thera [Multivitamin 1 tab PO DAILY 11/24/14 02/13/17 History (formulary)] Ubidecarenone [Co Q-10] 100 mg PO DAILY 11/24/14 02/13/17 History Fish Oil/Dha/Epa [Fish Oil 1,200 1 cap PO DAILY 01/14/17 02/13/17 History mg Fish Oil] Naproxen [Naprosyn] 500 mg PO Q12HR PRN 01/14/17 02/13/17 History Turmeric Root Extract [Turmeric] 500 mg PO DAILY 01/14/17 02/13/17 History Ergocalciferol [Vitamin D2] 50,000 unit PO Q14D 02/13/17 02/13/17 History Hydrochlorothiazide [Hydrodiuril] 25 mg PO DIRECTED 02/13/17 02/13/17 History amLODIPine [Norvasc] 10 mg PO DAILY 02/13/17 02/13/17 History Allergies Allergy/AdvReac Type Severity Reaction Status Date / Time bee venom protein (honey bee) Allergy Swelling Verified 02/13/17 10:11 hydrochlorothiazide Allergy Anaphylaxis Verified 02/13/17 10:11 lisinopril Allergy Anaphylaxis Verified 02/13/17 10:11 Penicillins Allergy Anaphylaxis Verified 02/13/17 10:11 Physical Exam Vitals: Vital Signs Temp Pulse Resp BP Pulse Ox 02/13/17 14:48 99.2 F 105 H 18 116/73 96 02/13/17 13:54 104 H 18 113/65 96 02/13/17 12:29 112 H 18 110/77 93 L 02/13/17 12:23 93 L 02/13/17 11:45 108 H 18 125/84 98 02/13/17 11:00 107 H 25 H 118/79 99 02/13/17 10:00 112 H 25 H 114/66 94 L 02/13/17 09:53 116 H 02/13/17 09:40 111 H 02/13/17 09:34 97.3 F L 119 H 30 H 106/61 92 L Intake and Output 02/13/17 02/13/17 02/13/17 06:59 14:59 22:59 Other: # Voids 0 Weight 77.111 kg Patient Weight 02/14/17 06:59 Weight 77.111 kg Physical exam Gen. appearance oriented 3 in no distress Neck is supple no JVD Periorbital swelling is still noted No swelling of the tongue good air movement of the neck Lungs good air entry clear to auscultation no rhonchi or wheezing Heart S1-S2 heard regular rate and rhythm no murmurs appreciated Abdomen is soft nontender no organomegaly bowel sounds are intact Neurologically cranial nerves II-12 grossly intact no focal motor or sensory deficits noted Skin no abnormalities appreciated Results CBC & Chem 7: 02/13/17 09:55 02/13/17 09:55 Labs: Abnormal Lab Results - Last 24 Hours (Table) 02/13/17 02/13/17 02/13/17 Range/Units 09:55 09:55 09:55 WBC 2.2 L (3.8-10.6) k/uL RBC 5.57 H (3.80-5.40) m/uL Hgb 18.5 H D (11.4-16.0) gm/dL Hct 55.5 H (34.0-46.0) % Neutrophils # 1.2 L (1.3-7.7) k/uL Lymphocytes # 0.8 L (1.0-4.8) k/uL D-Dimer (<0.60) mg/L FEU Chloride 109 H (98-107) mmol/L Carbon Dioxide 18 L (22-30) mmol/L Glucose 124 H (74-99) mg/dL AST 47 H (14-36) U/L Troponin I 0.046 H* (0.000-0.034) ng/mL 02/13/17 02/13/17 Range/Units 10:12 14:35 WBC (3.8-10.6) k/uL RBC (3.80-5.40) m/uL Hgb (11.4-16.0) gm/dL Hct (34.0-46.0) % Neutrophils # (1.3-7.7) k/uL Lymphocytes # (1.0-4.8) k/uL D-Dimer >34.07 H (<0.60) mg/L FEU Chloride (98-107) mmol/L Carbon Dioxide (22-30) mmol/L Glucose (74-99) mg/dL AST (14-36) U/L Troponin I 0.102 H* (0.000-0.034) ng/mL Thrombosis Risk Factor Assmnt - Choose All That Apply Any of the Below Risk Factors Present?: Yes Each Factor Represents 1 point: Age 41-60 years, Obesity (BMI >25) Other Risk Factors: No Other congenital or acquired thrombophilia - If yes, enter type in comment: No Thrombosis Risk Factor Assessment Total Risk Factor Score: 2 Thrombosis Risk Factor Assessment Level: Low Risk Assessment and Plan Plan: #1 acute anaphylactic reaction likely due to hydrochlorothiazide #2 essential hypertension #3 dyslipidemia #4 indeterminant troponin leak Plan Serial enzymes will be obtained if patient's troponins trended down patient does need a outpatient stress test as patient was noted to have significant calcium deposits in her coronary system however patient is symptom-free and this can be done on an outpatient basis Patient will be monitored in the hospital Complement level will be obtained We'll restart amlodipine 10 mg Continue IV fluids for another 24 hours An H1 and H2 ch[place] will be initiated patient be continued on Solu-Medrol 30 IV twice a day DVT prophylaxis
[2017-02-13] MEDS ORDERED: methylPREDNISolone SOD SUCCI 125 MG/2 ML VIAL IV SCH (18:00)
[2017-02-13] MEDS ORDERED: diphenhydrAMINE 50 MG/ML 1 ML VIAL IVP SCH (18:00)
[2017-02-13] MEDS: diphenhydrAMINE 50 MG/ML 1 ML VIAL IVP SCH ×2 (18:07→20:57)
[2017-02-13] MEDS ORDERED: IPRATROPIUM-ALBUTEROL 3 ML NEB INHALATION PRN (18:59)
[2017-02-13] MEDS: IPRATROPIUM-ALBUTEROL 3 ML NEB INHALATION SCH (20:17)
[2017-02-13] MEDS: FAMOTIDINE 20 MG/2 ML VIAL IV SCH (20:55)
[2017-02-13] MEDS: NAPROXEN 250 MG TAB PO PRN (20:58)
[2017-02-13] MEDS ORDERED: FAMOTIDINE 20 MG/2 ML VIAL IV SCH (21:00)
[2017-02-13] MEDS: methylPREDNISolone SOD SUCCI 40 MG/ML 1 ML VIAL IV SCH (21:04)
[2017-02-13] MEDS: SODIUM CHLORIDE 0.9% 1,000 ML IV SCH (21:18)
[2017-02-13 23:06] LABS: Creatine Kinase MB 0.9 ng/mL (0.0-2.4)
[2017-02-13 23:10] LABS: Troponin I 0.038 ng/mL (0.000-0.034)
[2017-02-14] MEDS: SODIUM CHLORIDE 0.9% 1,000 ML IV SCH (04:06)
[2017-02-14] MEDS: diphenhydrAMINE 50 MG/ML 1 ML VIAL IVP SCH ×3 (05:39→20:57)
[2017-02-14 06:48] LABS: Cholesterol 191 mg/dL (<200); HDL Cholesterol 80 mg/dL (40-60)
[2017-02-14] MEDS: IPRATROPIUM-ALBUTEROL 3 ML NEB INHALATION SCH ×4 (08:20→19:56)
[2017-02-14] MEDS ORDERED: amLODIPine 10 MG TAB PO SCH (09:00)
[2017-02-14] MEDS: methylPREDNISolone SOD SUCCI 40 MG/ML 1 ML VIAL IV SCH (10:37)
[2017-02-14] MEDS: FAMOTIDINE 20 MG/2 ML VIAL IV SCH ×2 (10:37→20:56)
[2017-02-14] MEDS: amLODIPine 10 MG TAB PO SCH (10:58)
[2017-02-14] MEDS: ASPIRIN 325 MG TAB PO SCH (10:58)
[2017-02-14] MEDS ORDERED: FUROSEMIDE 10 MG/ML 2 ML VIAL IV ONE (13:05)
--- NOTE | 2017-02-14 14:52 | CDI ---
In responding to this query, please exercise your independent professional judgment. The [facility] Coding Staff and Clinical Documentation Specialists appreciate your assistance in clarifying documentation, maintaining compliance with coding guidelines, accurately documenting patients condition and capturing severity of illness. The fact that a question is asked does not imply that any particular answer is desired or expected. Communication forms are a method of clarifying documentation and are not made part of the Legal Health Record. Thank you in advance for your clarification. Last Revision, October 2015 Bj Russell [address] [facility] [place] [address] Documentation Clarification Form Date: 02/14/2017 2:30:00 PM From: Arleen Pena RN CCDS Admit Date: 02/13/2017 1:59:00 PM Patient Name: Kassandra Patel Visit Number: [id number] Discharge Date: Dr. Jona Reis The patient presented with the following respiratory symptoms: difficulty breathing ER notes: Blood pressure per EMS 70/30 she was hypoxemic. History/Risk Factors: Hypertension Tobacco use: Former smoker Clinical Indicators: She started to develop difficulty breathing after taking hydrochlorothiazide and EMS was called. she was found to be tachycardic with heart rate 150's treated with Benadryl IV and epinephrine. ED She was short of breath, accessory muscle use, pursed lip breathing Vital signs/Pulse oximetry: 106/61 119 30 97.3 92 % 15 % Non-Rebreather Lung/Breathing assessment: Decreased breath sounds, she does have some evidence of cyanosis. (per ER evaluation) Chest x-ray: Diffuse interstitial pattern with interstitial lung disease or pneumonitis. Venous congestion or chronic pulmonary fibrosis also the differential diagnosis. Treatment: Breathing Tx: Albuterol/Ipratropium Duonebs per orders Monitor O2 Sat's and titrate Benadryl IV Q 8 hrs Solu-Medrol IV In your professional opinion, can you please clarify if these findings signify one of the following conditions? Acuity: o Acute o Chronic o Acute on Chronic Respiratory Status: o Respiratory failure o Respiratory failure with hypercapnia o Respiratory failure with hypoxia o Acute Respiratory Distress o Other Diagnosis, please specify o Unable to determine Please document in your progress notes and discharge summary in order to capture severity of illness and risk of mortality. Include clinical findings that support your diagnosis. FYI: Press F11 to launch patient chart. Place X here if this finding has no clinical significance, is not applicable or if you are not able to provide any additional documentation. MTDD
--- NOTE | 2017-02-14 16:02 | P.PN ---
Subjective This is a 61-year-old female with history of hypertension comes in to the hospital after having an acute reaction to a new medication that was started within the last 24 hours. Patient was admitted to a service a month ago for similar episode where patient had a syncope and some concern for an ALLERGIC reaction. Patient at that time was on hydrochlorothiazide/lisinopril. The reaction was attribute it to lisinopril and hence was titrated off it and was started on amlodipine 5 mg Patient's primary care doctor Dr. Holloway has increased amlodipine to 10 mg however due to peripheral vascular edema a dose of hydrochlorothiazide was attempted with the patient patient took her first dose was noted to have significant amount of dyspnea and swelling in her tongue eyes. Patient did not have any episodes of chest pain or graft patient also noted to have significant episodes of tachyphylaxis with sinus tachycardia that was noted on the monitor Patient was seen in the emergency room was noted to have sinus tachycardia. Patient was also noted to have a d-dimer elevation is CT angiogram was done did not reveal a pulmonary embolism however patient was noted to have coronary calcifications Patient at the time of my evaluation states to be feeling better denies having headaches blurry vision chest pain difficulty breathing nausea vomiting diarrhea Patient ever denies having any ALLERGIES to sulfa exposure 02/14/2070 Patient states to be feeling significantly better however still not back to her normal self Denies having chest pain difficulty breathing nausea vomiting or diarrhea Objective - Vital Signs Vital signs: Vital Signs Temp 98 F 02/14/17 11:24 Pulse 90 02/14/17 15:25 Resp 20 02/14/17 11:24 BP 128/76 02/14/17 11:24 Pulse Ox 94 L 02/14/17 11:24 Intake & Output 02/13/17 02/14/17 02/14/17 18:59 06:59 18:59 Intake Total 1759 1394 Balance 1759 1394 Weight 77.111 kg 79.5 kg Intake: Intake, IV Titration 1759 1274 Amount Heparin Sodium,Porcine/ 259 74 D5w Pmx 25,000 unit In Dextrose/Water 1 500ml. bag @ 12 UNITS/KG/HR 18.5 mls/hr IV .Q24H [facility] Rx#: [id number] Sodium Chloride 0.9% 1, 1500 1200 000 ml @ 100 mls/hr IV . Q10H [facility] Rx#:[id number] Oral 120 Other: Voiding Method Toilet # Voids 0 1 - Exam Physical exam Gen. appearance oriented 3 in no distress improved Neck is supple no JVD Lungs crackles at the bases no wheezing Heart S1-S2 heard regular rate and rhythm no murmurs appreciated Abdomen is soft nontender no organomegaly bowel sounds are intact Neurologically cranial nerves II-12 grossly intact no focal motor or sensory deficits noted Skin no abnormalities appreciated - Labs CBC & Chem 7: 02/13/17 09:55 02/13/17 09:55 Labs: Abnormal Lab Results - Last 24 Hours (Table) 02/13/17 02/13/17 02/13/17 Range/Units 14:35 22:05 22:05 APTT 64.5 H (22.0-30.0) sec Troponin I 0.102 H* 0.038 H* (0.000-0.034) ng/mL HDL Cholesterol (40-60) mg/dL 02/14/17 02/14/17 Range/Units 05:50 05:50 APTT 55.9 H (22.0-30.0) sec Troponin I (0.000-0.034) ng/mL HDL Cholesterol 80 H (40-60) mg/dL Assessment and Plan Plan: #1 acute anaphylactic reaction likely due to hydrochlorothiazide #2 essential hypertension #3 dyslipidemia #4 indeterminant troponin leak Plan She will need an outpatient stress test was noted to have calcified coronaries this was discussed with the patient Patient wants to follow with Dr.VC Escamilla Complement level will be obtained amlodipine 10 mg discontinue IV fluids discontinue Solu-Medrol
[2017-02-14] MEDS: NAPROXEN 250 MG TAB PO PRN (21:12)
[2017-02-15] MEDS: SODIUM CHLORIDE 0.9% 1,000 ML IV SCH (00:48)
[2017-02-15 01:25] VITALS: TEMP 97.5
[2017-02-15] MEDS: diphenhydrAMINE 50 MG/ML 1 ML VIAL IVP SCH (05:15)
[2017-02-15 06:08] LABS: Complement Total (CH50) 30 U/mL (42 - 95)
[2017-02-15] MEDS: FAMOTIDINE 20 MG/2 ML VIAL IV SCH (07:46)
[2017-02-15] MEDS: amLODIPine 10 MG TAB PO SCH (07:46)
[2017-02-15] MEDS: ASPIRIN 325 MG TAB PO SCH (07:46)
[2017-02-15] MEDS: NAPROXEN 250 MG TAB PO PRN (08:11)
[2017-02-15] MEDS: IPRATROPIUM-ALBUTEROL 3 ML NEB INHALATION SCH ×3 (08:15→15:51)
[2017-02-15 08:18] VITALS: RESP 17
[2017-02-15 13:18] VITALS: BP 156/79; PULSE 106
[2017-02-15 15:36] LABS: Basophils # (A) 0.1 k/uL (0-0.2); Basophils % (A) 1 %; CH 32.4; CHCM 34.2; Eosinophils # (A) 0.1 k/uL (0-0.7); Eosinophils % (A) 1 %; HCT 42.6 % (34.0-46.0); HDW 2.51; Luc # (Auto) 0.34; Luc % (Auto) 2; Lymphocytes % (A) 23 %; MCH 32.8 pg (25.0-35.0); MCHC 34.6 g/dL (31.0-37.0); Mean Platelet Volume 7.3; Monocytes % (A) 5 %; Neutrophils # (A) 12.4 k/uL (1.3-7.7); Neutrophils % (A) 69 %; RBC 4.48 m/uL (3.80-5.40); RDW 13.2 % (11.5-15.5); WBC 17.9 k/uL (3.8-10.6); WBC (Perox) 17.51
[2017-02-15 15:40] LABS: HGB 14.7 gm/dL (11.4-16.0)
[2017-02-15 15:45] LABS: Anion Gap 14 mmol/L; Blood Urea Nitrogen 18 mg/dL (7-17); Calcium 9.6 mg/dL (8.4-10.2); Carbon Dioxide 25 mmol/L (22-30); Chloride 105 mmol/L (98-107); Glucose 111 mg/dL (74-99); Non-African American GFR(MDRD) >60 (>60 ml/min/1.73 sqM); Potassium 3.8 mmol/L (3.5-5.1); Sodium 144 mmol/L (137-145)
[2017-02-15] MEDS ORDERED: INSULIN LISPRO (humaLOG) 300 UNIT/3 ML VIAL SQ SCH (17:30)
--- NOTE | 2017-02-16 09:50 | DS ---
Consultation: None. DISCHARGE DIAGNOSES: 1. Acute anaphylactic reaction secondary to hydrochlorothiazide. 2. Essential hypertension. 3. History of allergic reaction to Lisinopril. 4. Hyperlipidemia. 5. Intermediate troponin leak with no complaints of chest pain. HOSPITAL COURSE: Ms. Patel is a 61 year old female with known history of hypertension, came to the hospital with acute reaction to new medication that was started within the last 24 hours up to admission. The patient was admitted to hospital with similar episode once she had an allergic reaction to Lisinopril at that time. Currently blood pressure medications she is on Amlodipine 10 mg daily. Blood pressure is fairly controlled. Otherwise, the patient was advised to follow with primary care physician to titrate the blood pressure medications and currently the patient denied any complaints of chest pain or short of breath. The patient was found to have troponin leak on admission as well as elevated D. dimer. The patient had a CT angiogram was done did not reveal any pulmonary embolism, however, the patient was noted to have coronary calcifications. The patient was advised to follow up with cardiology clinic as advised previously for a stress test. The patient was advised to follow with Dr. Escamilla as an outpatient. Otherwise, hydrochlorothiazide has been discontinued. The patient initially had neutropenia as well as hemoglobin of 18.5 which has been normalized today. Hemoglobin 14.7 today and WBC 7.9 likely due to steroids. The patient will be continued on Benadryl prn as an outpatient and recommended to follow up with primary care physician in one to two days and repeat blood pressure checkup at this time and titrate the medications as needed. Otherwise, the patient is stable to be discharged home. Discharge physical examination: 61-year old female lying in the bed comfortably, awake, alert and oriented times three. Appears to be in no apparent distress. Vital signs: Blood pressure 156/79. Pulse 105. Respirations 17. Temperature afebrile. Pulse ox 93% on room air. Laboratory data reviewed. Discharge physical examination done. DISCHARGE MEDICATIONS: 1. Multivitamins one tablet po daily. 2. Co-Enzyme Q 100 mg po daily. 3. Fish oil one capsule po daily. 4. Naprosyn 500 mg po q12 hourly prn for pain. 5. Tumeric root extract 500 mg po daily. 6. Vitamin D2 50,000 units po q14 days. 7. Amlodipine 10 mg po daily. 8. Benadryl 25 mg po t.i.d. prn for allergic reaction. Otherwise, the patient is stable to be discharged home. Follow with Dr. Holloway in one or two days. Home with self care. Low salt diet. Activity as tolerated. MTDD
== END 2017-02-15 17:35 | disposition home or self-care (01) | DRG 915 ==
LOC: EC 09:26 → 6SEL 13:59
PROVIDERS: ADMIT Internal Medicine; ATTEND Internal Medicine
DX: T78.2XXA Anaphylactic shock, unspecified, initial encounter (principal); J96.01 Acute respiratory failure with hypoxia; D70.9 Neutropenia, unspecified; I10 Essential (primary) hypertension; T50.2X5A Adverse effect of carbonic-anhydrase inhibitors, benzothiadiazides and other diuretics, initial encounter; E78.5 Hyperlipidemia, unspecified; M19.91 Primary osteoarthritis, unspecified site; H54.41 Blindness, right eye, normal vision left eye; Z79.899 Other long term (current) drug therapy; Z88.0 Allergy status to penicillin; Z87.891 Personal history of nicotine dependence; Z88.8 Allergy status to other drugs, medicaments and biological substances; Z91.030 Bee allergy status; Y92.009 Unspecified place in unspecified non-institutional (private) residence as the place of occurrence of the external cause
CPT/HCPCS: 36415; 71010; 71275; 80048; 80053; 80061; 82550; 82553; 83735; 84443; 84484; 85025; 85379; 85730; 86160; 86162; 93005; 94640; 94760

== ENCOUNTER → 2020-04-26 | Outpatient (CLI) | payer OTHER ==
--- NOTE | 2020-04-28 10:43 | MM ---
Reason for exam: screening (asymptomatic). Last mammogram was performed 2 years and 9 months ago. History: Patient is postmenopausal. Family history of breast cancer in 2 paternal aunts. Physical Findings: A clinical breast exam by your physician is recommended on an annual basis and results should be correlated with mammographic findings. MG 3D Screening Mammo W/Cad Bilateral CC and MLO view(s) were taken. Prior study comparison: July 15, 2017, bilateral MG 3d screening mammo w/cad. October 29, 2014, bilateral MG screening mammo w CAD. The breast tissue is almost entirely fat. No significant changes when compared with prior studies. ASSESSMENT: Benign, BI-RAD 2 RECOMMENDATION: Routine screening mammogram of both breasts in 1 year.
== END | disposition home or self-care (01) ==
LOC: RADMAMWWP 12:42
PROVIDERS: ATTEND Family Medicine
DX: Z12.31 Encounter for screening mammogram for malignant neoplasm of breast (principal)
CPT/HCPCS: 77063; 77067

== ENCOUNTER → 2020-06-06 | Outpatient (CLI) | payer OTHER ==
--- NOTE | 2020-06-06 08:03 | US ---
EXAMINATION TYPE: US abdomen limited DATE OF EXAM: 06/06/2020 COMPARISON: NONE CLINICAL HISTORY: abnormal liver labs. Abnormal labs. No pain. EXAM MEASUREMENTS: Liver Length: 14.3 cm Gallbladder Wall: 0.2 cm CBD: 0.5 cm Right Kidney: 11.4 x 5.1 x 5.2 cm Pancreas: Heterogenous and echogenic Liver: Echogenic and coarse in appearance. Gallbladder: Folds seen. Evidence for sonographic Hinton's sign: neg CBD: wnl Right Kidney: No hydronephrosis or masses seen Visualized pancreas is heterogeneous without focal solid or cystic mass. Portions not well seen on im ages saved. Visualized liver is markedly heterogeneously hyperechoic. No surrounding ascites. Evaluat ion for focal masses suboptimal due to the heterogeneity. Common bile duct not dilated. Gallbladder h as a fold without shadowing intraluminal mobile gallstones. IMPRESSION: Heterogeneous hyperechoic appearance of liver consistent with diffuse fatty infiltration and/or underlying hepatocellular disease. Patient may benefit with ultrasound elastography to further evaluate.
== END | disposition home or self-care (01) ==
LOC: RADUSWWP 07:25
PROVIDERS: ATTEND Family Medicine
DX: R93.2 Abnormal findings on diagnostic imaging of liver and biliary tract (principal)
CPT/HCPCS: 76705

== ENCOUNTER → 2022-01-24 | Outpatient (CLI) | payer OTHER ==
--- NOTE | 2022-01-25 11:05 | MM ---
Reason for Exam: Screening (asymptomatic). Last mammogram was performed 1 year(s) and 9 month(s) ago. Patient History: Menarche at age 13. First Full-Term at age 19. Postmenopausal. Patient has history of breast feeding. Paternal aunt (suman) had breast cancer, age 45. Risk Values: Rupal 5 year model risk: 1.3%. NCI Lifetime model risk: 5.2%. Prior Study Comparison: 10/29/2014 Bilateral Screening Mammogram, [facility]. 07/15/2017 Bilateral Screening Mammogram, [facility]. 04/26/2020 Bilateral Screening Mammogram, [facility]. Tissue Density: The breast tissue is heterogeneously dense. This may lower the sensitivity of mammography. Findings: Analyzed By CAD. There is no suspicious group of microcalcifications or new suspicious mass in either breast. Stable benign punctate and vascular calcifications noted bilaterally. Overall Assessment: Benign, BI-RAD 2 Management: Screening Mammogram of both breasts in 1 year. A clinical breast exam by your physician is recommended on an annual basis and results should be correlated with mammographic findings. Electronically signed and approved by: Chele Weiss M.D. Radiologis
== END ==
LOC: RADMAMWWP 09:22
PROVIDERS: ATTEND Family Medicine
DX: Z12.31 Encounter for screening mammogram for malignant neoplasm of breast (principal); Z78.0 Asymptomatic menopausal state; Z80.3 Family history of malignant neoplasm of breast
CPT/HCPCS: 77063; 77067

== ENCOUNTER → 2023-06-12 | Outpatient (CLI) | payer MEDICARE ==
--- NOTE | 2023-06-12 12:14 | BD ---
EXAMINATION TYPE: Axial Bone Density DATE OF EXAM: 06/12/2023 CLINICAL HISTORY: 68 years old Female. ICD-10 CODE: Z13.820 OSTEOPOROSIS Height: 61 Weight: 167 FRAX RISK QUESTIONS: Secondary Osteoporosis: yes 5. Chronic liver disease: yes RISK FACTORS HISTORY OF: Family History of Osteoporosis: no Active: yes Diet low in dairy products/other sources of calcium: no Postmenopausal woman: yes Lost more than 2 inches in height since high school: no Frequent falls: no Poor Health: MEDICATIONS: Additional Medications: yes hbp meds, cholesterol meds EXAM MEASUREMENTS: Bone mineral densitometry was performed using the Table8 System. Bone mineral density as measured about the Lumbar spine is: ----- L1-L4(G/cm2): 1.098 T Score Values are as follows: ----- L1: -1.5 ----- L2: -1.0 ----- L3: -0.7 ----- L4: 0.1 ----- L1-L4: -0.7 Z Score Values are as follows: ----- L1: -0.2 ----- L2: 0.2 ----- L3: 0.6 ----- L4: 1.4 ----- L1-L4: 0.6 Bone mineral density baseline Bone mineral density about the R hip (g/cm2): 0.993 Bone mineral density about the L hip (g/cm2): 1.028 T Score values are as follows: -----R Neck: -1.7 -----L Neck: -1.8 -----R Total: -0.1 -----L Total: 0.2 Z Score values are as follows: -----R Neck: -0.4 -----L Neck: -0.5 -----R Total: 0.9 -----L Total: 1.2 Bone mineral density baseline FRAX%s: The graph provided illustrates a 9.4% chance for a major osteoporotic fx and a 1.2% chance fo r the hips probability for fx in 10 years time. IMPRESSION: Osteopenia (T Score between -2.5 and -1). There is slightly increased risk of fracture and the patient may be considered for treatment. Re-Screen 2-5 years. NOTE: T-SCORE=SD OF THE YOUNG ADULT MEAN.
--- NOTE | 2023-06-13 09:39 | MM ---
Reason for Exam: Screening (asymptomatic). Last mammogram was performed 1 year(s) and 5 month(s) ago. Patient History: Menarche at age 13. First Full-Term at age 19. Postmenopausal. Patient has history of breast feeding. Paternal aunt (suman) had breast cancer, age 45. Risk Values: Rupal 5 year model risk: 1.3%. NCI Lifetime model risk: 4.8%. Prior Study Comparison: 07/15/2017 Bilateral Screening Mammogram, [facility]. 04/26/2020 Bilateral Screening Mammogram, [facility]. 01/24/2022 Bilateral MG 3D screening mammo w/cad, [facility]. Tissue Density: There are scattered fibroglandular densities. Findings: Analyzed By CAD. The pattern is symmetrical and stable. There is a focal asymmetry in the lower inner aspect left breast 6 cm from the nipple which appears to be a change. Additional workup is recommended. Is symmetrical and stable. Benign vascular calcification is present bilaterally. Left breast: No suspicious groups of microcalcifications, spiculated or lobular masses, architectural distortion or other secondary signs of malignancy are mammographically apparent. Overall Assessment: Incomplete: need additional imaging evaluation, BI-RAD 0 Management: Diagnostic Mammogram of the right breast. A negative mammogram report should not preclude additional follow up of suspicious palpable abnormalities. Patient should continue monthly self breast exam. A clinical breast exam by your physician is recommended on an annual basis and results should be correlated with mammographic findings. Electronically signed and approved by: Jonathan Corley D.O. Radiologis
== END | disposition home or self-care (01) ==
LOC: RADMAMWWP 10:08
PROVIDERS: ATTEND Family Medicine
DX: Z12.31 Encounter for screening mammogram for malignant neoplasm of breast (principal); Z13.820 Encounter for screening for osteoporosis; M81.0 Age-related osteoporosis without current pathological fracture; M85.89 Other specified disorders of bone density and structure, multiple sites; Z80.3 Family history of malignant neoplasm of breast; Z78.0 Asymptomatic menopausal state
CPT/HCPCS: 77063; 77067; 77080

== ENCOUNTER → 2023-06-26 | Outpatient (CLI) | payer MEDICARE ==
--- NOTE | 2023-06-26 10:51 | MM ---
Reason for Exam: Additional evaluation requested from abnormal screening. Last screening mammogram was performed less than 1 month ago. Patient History: Menarche at age 13. First Full-Term at age 19. Postmenopausal. Patient has history of breast feeding. Paternal aunt (suman) had breast cancer, age 45. Risk Values: Rupal 5 year model risk: 1.3%. NCI Lifetime model risk: 4.8%. Prior Study Comparison: 04/26/2020 Bilateral Screening Mammogram, [facility]. 01/24/2022 Bilateral MG 3D screening mammo w/cad, [facility]. 06/12/2023 Bilateral MG 3D screening mammo w/cad, [facility]. Tissue Density: Right: The breast tissue is heterogeneously dense. This may lower the sensitivity of mammography. Findings: Analyzed By CAD. Circumscribed 7 mm mass at the 5 to 6:00 position right breast middle depth persists on additional views. Further ultrasound evaluation recommended. Overall Assessment: Incomplete: need additional imaging evaluation, BI-RAD 0 Management: Diagnostic Breast Ultrasound of the right breast. Electronically signed and approved by: Donnell Gilman M.D. Radiologist
--- NOTE | 2023-06-26 11:23 | USB ---
Reason for Exam: Additional evaluation requested from abnormal screening. Patient History: Menarche at age 13. First Full-Term at age 19. Postmenopausal. Patient has history of breast feeding. Paternal aunt (suman) had breast cancer, age 45. Risk Values: Rupal 5 year model risk: 1.3%. NCI Lifetime model risk: 4.8%. Technique: Method: Targeted. Prior Study Comparison: 04/26/2020 Bilateral Screening Mammogram, [facility]. 01/24/2022 Bilateral MG 3D screening mammo w/cad, [facility]. 06/12/2023 Bilateral MG 3D screening mammo w/cad, [facility]. Findings: The lower inner quadrant of the right breast, the axilla of the right breast and the retroareolar of the right breast were scanned. Targeted ultrasound lower inner quadrant 3:00 to 6:00 including the subareolar region and axilla. At the 5:00 position, 5 cm from the nipple, there is a 7 x 6 x 6 mm cyst cluster versus complex cyst corresponding to the mammographic nodule. Six-month follow-up recommended. Overall Assessment: Probably benign, BI-RAD 3 Management: Diagnostic Mammogram of the right breast in 6 months. Diagnostic Breast Ultrasound of the right breast in 6 months. For the suspected cyst cluster. A complex cyst is also possible. A clinical breast exam by your physician is recommended on an annual basis and results should be correlated with mammographic findings. This exam should not preclude additional follow-up of suspicious palpable abnormalities. Results were given to the patient verbally at the time of exam. Electronically signed and approved by: Donnell Gilman M.D. Radiologist
== END | disposition home or self-care (01) ==
LOC: RADMAMWWP 10:01
PROVIDERS: ATTEND Family Medicine
DX: R92.331 Mammographic heterogeneous density, right breast (principal); Z78.0 Asymptomatic menopausal state; Z80.3 Family history of malignant neoplasm of breast
CPT/HCPCS: 77065; 76642; G0279; 77061

== ENCOUNTER → 2023-11-25 | Outpatient (CLI) | payer MEDICARE ==
--- NOTE | 2023-11-27 08:03 | USB ---
Reason for Exam: Follow-up at short interval from prior study. Patient History: Menarche at age 13. First Full-Term at age 19. Postmenopausal. Patient has history of breast feeding. Paternal aunt (suman) had breast cancer, age 45. Risk Values: Rupal 5 year model risk: 1.3%. NCI Lifetime model risk: 4.8%. Technique: Method: Targeted. Prior Study Comparison: 01/24/2022 Bilateral MG 3D screening mammo w/cad, [facility]. 06/12/2023 Bilateral MG 3D screening mammo w/cad, [facility]. 06/26/2023 Right MG 3D work up w/cad RT, [facility]. Findings: The lower section of the breast of the right breast, the axilla of the right breast and the retroareolar of the right breast were scanned. Cluster of cysts noted at the right 5:00 position 4 cm from the nipple measuring 6 x 3 mm 7 x 6 mm previously. Continued six-month follow-up ultrasound is advised. No solid masses seen. Overall Assessment: Probably benign, BI-RAD 3 Management: Diagnostic Breast Ultrasound of the right breast in 6 months. A clinical breast exam by your physician is recommended on an annual basis and results should be correlated with mammographic findings. This exam should not preclude additional follow-up of suspicious palpable abnormalities. Results were given to the patient verbally at the time of exam. Electronically signed and approved by: Chele Weiss M.D. Radiologis
--- NOTE | 2023-11-27 08:59 | MM ---
Reason for Exam: Follow-up at short interval from prior study. Last screening mammogram was performed 5 month(s) ago. Patient History: Menarche at age 13. First Full-Term at age 19. Postmenopausal. Patient has history of breast feeding. Paternal aunt (suman) had breast cancer, age 45. Risk Values: Rupal 5 year model risk: 1.3%. NCI Lifetime model risk: 4.8%. Prior Study Comparison: 01/24/2022 Bilateral MG 3D screening mammo w/cad, [facility]. 06/12/2023 Bilateral MG 3D screening mammo w/cad, [facility]. 06/26/2023 Right MG 3D work up w/cad RT, [facility]. Tissue Density: Right: There are scattered areas of fibroglandular density. Findings: Analyzed By CAD. No discrete mass or distortion. No suspicious calcifications. Overall Assessment: Incomplete: need additional imaging evaluation, BI-RAD 0 Management: Diagnostic Breast Ultrasound of the right breast. . Results were given to the patient verbally at the time of exam. Patient should continue monthly self-breast exams. A clinical breast exam by your physician is recommended on an annual basis. This exam should not preclude additional follow-up of suspicious palpable abnormalities. Note on Rupal scores and lifetime risk: 1. A Rupal score greater than 3% is considered moderate risk. If this is the case, consider specialist referral to assess eligibility for a risk reducing agent. 2. If overall lifetime risk for the development of breast cancer is 20% or higher, the patient may qualify for future screening with alternating mammogram and breast MRI. Electronically signed and approved by: Chele Weiss M.D. Radiologis
== END | disposition home or self-care (01) ==
LOC: RADMAMWWP 12:45
PROVIDERS: ATTEND Family Medicine
DX: N60.11 Diffuse cystic mastopathy of right breast (principal); R92.321 Mammographic fibroglandular density, right breast; Z80.3 Family history of malignant neoplasm of breast; Z78.0 Asymptomatic menopausal state
CPT/HCPCS: 77065; 76642; G0279; 77061

== ENCOUNTER → 2024-06-08 | Outpatient (CLI) | payer MEDICARE ==
--- NOTE | 2024-06-08 11:04 | USB ---
Reason for Exam: Follow-up at short interval from prior study. Patient History: Menarche at age 13. First Full-Term at age 19. Postmenopausal. Patient has history of breast feeding. Paternal aunt (suman) had breast cancer, age 45. Risk Values: Rupal 5 year model risk: 1.3%. NCI Lifetime model risk: 4.6%. Technique: Method: Targeted. Prior Study Comparison: 06/12/2023 Bilateral MG 3D screening mammo w/cad, [facility]. 06/26/2023 Right MG 3D work up w/cad RT, [facility]. 11/25/2023 Right MG 3D diag mammo w/cad RT, [facility]. Findings: The lower section of the breast of the right breast, the axilla of the right breast and the retroareolar of the right breast were scanned. No discrete solid or cystic areas identified. No abnormality at the 5:00 position is reidentified. Overall Assessment: Negative, BI-RAD 1 Management: Screening Mammogram of both breasts in 6 months. A clinical breast exam by your physician is recommended on an annual basis and results should be correlated with mammographic findings. This exam should not preclude additional follow-up of suspicious palpable abnormalities. Results were given to the patient verbally at the time of exam. [facility], , 06/08/2024 11:00 AM. Electronically signed and approved by: Jonathan Corley D.O. Radiologis
== END | disposition home or self-care (01) ==
LOC: RADUSWWP 10:21
PROVIDERS: ATTEND Family Medicine
DX: R92.8 Other abnormal and inconclusive findings on diagnostic imaging of breast (principal); Z78.0 Asymptomatic menopausal state; Z80.3 Family history of malignant neoplasm of breast